=== PATIENT | female | born 1975 | race Caucasian/White ===

== ENCOUNTER 2017-06-13 12:13 | Emergency (ER) | payer BC ==
[~2017-06-13] VITALS: Ht 172.7 cm; Wt 100.3 kg
[~2017-06-13 12:13] MED LIST: CIPRO500 MG PO; FLAGYL500 MG PO; LORTAB 5-500 T1 EACH PO; PENTASA500 MG PO
[2017-06-13 12:17] VITALS: BP 137/93
[2017-06-13] MEDS ORDERED: PENTASA500 MG PO (13:10)
[2017-06-13] MEDS ORDERED: PERCOCET 5/31 TABLET PO (13:41)
[2017-06-13] MEDS ORDERED: KEFLEX500 MG PO (13:41)
== END 2017-06-13 13:54 | disposition home or self-care (01) ==
LOC: EME 12:13
PROC: 0H98XZZ Drainage of Buttock Skin, External Approach (ICD-10-PCS; principal; 2017-06-13)
DX: L05.01 Pilonidal cyst with abscess (principal)
CPT/HCPCS: 99281; 99284

== ENCOUNTER 2018-03-15 11:53 | Emergency (ER) | payer BC ==
[~2018-03-15] VITALS: Ht 170.2 cm; Wt 97.1 kg
[~2018-03-15 11:53] MED LIST changes: +KEFLEX500 MG PO; +PERCOCET 5/31 TABLET PO
[2018-03-15 13:32] LABS: HEMATOCRIT 35.5 % (36.0-46.0); HEMOGLOBIN 11.8 G/DL (11.9-15.5); MCH 27.9 PG (29.0-34.0); MCHC 33.2 G/DL (30.0-36.0); MCV 83.9 FL (83-99); PLATELET COUNT 266 K/uL (156-360); RBC DIS.WIDTH-CV 14.4 % (11.8-14.6); RBC DIS.WIDTH-SD 43.7 % (39-53); RED BLOOD COUNT 4.23 M/uL (3.80-5.20); WHITE BLOOD COUNT 7.8 K/uL (4.1-10.2)
[2018-03-15 14:04] LABS: CHLORIDE 103 MEQ/L (99-109); SODIUM 136 MEQ/L (136-147)
[2018-03-15 14:09] LABS: CREATININE 0.7 MG/DL (0.6-1.3); GFR ESTIMATE (CALCULATED) > 59 mL/min/; GLUCOSE 153 mg/dL (70-99); UREA NITROGEN (BUN) 13 mg/dL (9-23)
[2018-03-15] MEDS ORDERED: VENTOLIN HFA18 GM IH (15:26)
[2018-03-15 15:57] VITALS: BP 138/102
== END 2018-03-15 15:59 | disposition home or self-care (01) ==
LOC: EME 11:53
PROVIDERS: Nurse Practitioner Family
DX: M79.661 Pain in right lower leg (principal); E11.9 Type 2 diabetes mellitus without complications; J45.909 Unspecified asthma, uncomplicated; Z90.49 Acquired absence of other specified parts of digestive tract
CPT/HCPCS: 71046; 80048; 85027; 93971; 99281; 99284